=== PATIENT | male | born 1980 | race Caucasian/White ===

== ENCOUNTER 2019-01-11 00:54 | Emergency (ER) | payer BC, SELFPAY ==
[2019-01-11 00:55] VITALS: BP 158/106; PULSE 113; RESP 20; TEMP 36.5; O2SAT 97
[2019-01-11 00:58] VITALS: BP 158/106; PULSE 113; RESP 20; TEMP 36.5; O2SAT 97
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
--- NOTE | 2019-01-11 01:10 | [facility].EDGENADL ---
ED Disposition Clinical Impression: Scalp laceration Qualifiers: Encounter type: initial encounter Qualified Code(s): S01.01XA - Laceration without foreign body of scalp, initial encounter Disposition: Home, Self-Care Condition on Discharge: Good Instructions: DI for Closed Head Injury, DI for Laceration Repair -- [place] Additional Instructions: Additional instructions for SCALP LACERATION: Clean the wound daily with soap and water. You may shower and shampoo your hair. Avoid submerging the wound. No swimming.. Apply a thin film of antibiotic ointment such as neosporin, polysporin, or triple antibiotic daily after showering. Be careful when combing or brushing hair so that you so not snag the kera with a comb or brush. See your primary care physician or return to the [facility] in 7 days for suture removal. The [facility] is open 9 AM to 9 PM 7 days a week. Return if any signs of infection including increasing pain, pus drainage, swelling, redness, red streaks, or fever. Additional instructions for HEAD INJURY: See your physician as soon as possible for further evaluation. Return immediately if severe headache, vomiting, problems with vision or speech, numbness or weakness of the extremities, or severe neck pain. Referrals: Provider,Referral, [Referring] - - Critical Care Critical Care Time: No Attestation: On 01/11/19, the high probability of a clinically significant, sudden or life threatening deterioration of the following system(s) required my full and direct attention, intervention and personal management. The time I documented below is in addition to time spent performing reported procedures but includes the following listed in this critical care notation. Medical Decision Making - Jona Inquiry Pt receiving controlled substance: No Vital Signs: 01/11/19 00:55 01/11/19 00:58 Temperature 97.7 F 97.7 F Temperature Source Oral Oral Pulse Rate [Right Radial] 113 H 113 H Respiratory Rate 20 20 Blood Pressure [Right Arm] 158/106 H 158/106 H Blood Pressure Mean [Right Arm] 123 123 02 Sat by Pulse Oximetry 97 97 - Lab Data Lab Results 01/11/19 01:05: WBC 7.1, RBC 5.18, Hgb 15.5, Hct 46.6, MCV 90.0, MCH 29.8, MCHC 33.1, RDW 13.1, Plt Count 211, MPV 6.6 L, Neut % (Auto) 46.3, Lymph % (Auto) 45.4, Brooke % (Auto) 5.6, Eos % (Auto) 1.8, Baso % (Auto) 0.9, Neut # (Auto) 3.3, Lymph # (Auto) 3.2, Brooke # (Auto) 0.4, Eos # (Auto) 0.1, Baso # (Auto) 0.1 01/11/19 01:05: Sodium 140, Potassium 3.3 L, Chloride 102, Carbon Dioxide 24, Anion Gap 17.3 H, BUN 8, Creatinine 1.11, Estimated Creat Clear 153, Estimated GFR 75, Est GFR ( Amer) 91, Glucose 137 H, Calcium 8.8, Total Bilirubin 0.5, AST 27, ALT 47, Alkaline Phosphatase 90, Total Protein 7.9, Albumin 4.1, Globulin 3.8 H, Albumin/Globulin Ratio 1.1, Plasma/Serum Alcohol 269 H 01/11/19 01:40: Urine Color Yellow, Urine Appearance Clear, Urine pH 6.0, Ur Specific [place] <= 1.005, Urine Protein Negative, Urine Glucose (UA) Negative, Urine Ketones Negative, Urine Blood Negative, Urine Nitrate Negative, Urine Bilirubin Negative, Urine Urobilinogen 0.2, Ur Leukocyte Esterase Negative, Amorphous Sediment Trace 01/11/19 01:40: Urine Opiates Screen Negative, Urine Methadone Screen Negative, Ur Barbituates Screen Negative, Ur Phencyclidine Scrn Negative, Ur Amphetamines Screen Negative, U Benzodiazepines Scrn Negative, Urine Cocaine Screen Negative, U Marijuana (THC) Screen Negative Result diagrams: 01/11/19 01:05 01/11/19 01:05 Orders (Tests/Meds): ED MEDICATIONS Generic Name Dose Route Start Last Admin Trade Name Freq PRN Reason Stop Dose Admin Sodium Chloride 1,000 mls @ 999 mls/hr 01/11/19 01:15 01/11/19 01:12 Sod Chlor 0.9% 1000ml Bag IV 01/11/19 02:15 999 mls/hr .Q1H1M LON Administration Discontinued Medications Generic Name Dose Route Start Last Admin Trade Name Freq PRN Reason Stop Dose Admin Lidocaine/Ep
--- NOTE | 2019-01-11 01:13 | ED_ITS ---
ED Disposition Clinical Impression: Scalp laceration Qualifiers: Encounter type: initial encounter Qualified Code(s): S01.01XA - Laceration without foreign body of scalp, initial encounter Disposition: Home, Self-Care Condition on Discharge: Good Instructions: DI for Closed Head Injury, DI for Laceration Repair -- [place] Additional Instructions: Additional instructions for SCALP LACERATION: Clean the wound daily with soap and water. You may shower and shampoo your hair. Avoid submerging the wound. No swimming.. Apply a thin film of antibiotic ointment such as neosporin, polysporin, or triple antibiotic daily after showering. Be careful when combing or brushing hair so that you so not snag the kera with a comb or brush. See your primary care physician or return to the [facility] in 7 days for suture removal. The [facility] is open 9 AM to 9 PM 7 days a week. Return if any signs of infection including increasing pain, pus drainage, swelling, redness, red streaks, or fever. Additional instructions for HEAD INJURY: See your physician as soon as possible for further evaluation. Return immediately if severe headache, vomiting, problems with vision or speech, numbness or weakness of the extremities, or severe neck pain. Referrals: Provider,Referral, [Referring] - - Critical Care Critical Care Time: No Attestation: On 01/11/19, the high probability of a clinically significant, sudden or life threatening deterioration of the following system(s) required my full and direct attention, intervention and personal management. The time I documented below is in addition to time spent performing reported procedures but includes the following listed in this critical care notation. Medical Decision Making - Jona Inquiry Pt receiving controlled substance: No Vital Signs: 01/11/19 00:55 01/11/19 00:58 Temperature 97.7 F 97.7 F Temperature Source Oral Oral Pulse Rate [Right Radial] 113 H 113 H Respiratory Rate 20 20 Blood Pressure [Right Arm] 158/106 H 158/106 H Blood Pressure Mean [Right Arm] 123 123 02 Sat by Pulse Oximetry 97 97 - Lab Data Lab Results 01/11/19 01:05: WBC 7.1, RBC 5.18, Hgb 15.5, Hct 46.6, MCV 90.0, MCH 29.8, MCHC 33.1, RDW 13.1, Plt Count 211, MPV 6.6 L, Neut % (Auto) 46.3, Lymph % (Auto) 45.4, [place]gg % (Auto) 5.6, Eos % (Auto) 1.8, Baso % (Auto) 0.9, Neut # (Auto) 3.3, Lymph # (Auto) 3.2, [place] # (Auto) 0.4, Eos # (Auto) 0.1, Baso # (Auto) 0.1 01/11/19 01:05: Sodium 140, Potassium 3.3 L, Chloride 102, Carbon Dioxide 24, Anion Gap 17.3 H, BUN 8, Creatinine 1.11, Estimated Creat Clear 153, Estimated GFR 75, Est GFR ( Amer) 91, Glucose 137 H, Calcium 8.8, Total Bilirubin 0.5, AST 27, ALT 47, Alkaline Phosphatase 90, Total Protein 7.9, Albumin 4.1, Globulin 3.8 H, Albumin/Globulin Ratio 1.1, Plasma/Serum Alcohol 269 H 01/11/19 01:40: Urine Color Yellow, Urine Appearance Clear, Urine pH 6.0, Ur Specific [place] <= 1.005, Urine Protein Negative, Urine Glucose (UA) Negative, Urine Ketones Negative, Urine Blood Negative, Urine Nitrate Negative, Urine Bilirubin Negative, Urine Urobilinogen 0.2, Ur Leukocyte Esterase Negative, Amorphous Sediment Trace 01/11/19 01:40: Urine Opiates Screen Negative, Urine Methadone Screen Negative, Ur Barbituates Screen Negative, Ur Phencyclidine Scrn Negative, Ur Amphetamines Screen Negative, U Benzodiazepines Scrn Negative, Urine Cocaine Screen Negative, U Marijuana (THC) Screen Negative
[2019-01-11 01:20] LABS: Basophils # 0.1 K/mm3 (0-0.2); Basophils % 0.9 % (0.1-2.0); Eosinophils # 0.1 K/mm3 (0.0-0.4); Eosinophils % 1.8 % (0.1-12.0); Hematocrit 46.6 % (42.0-52.0); Hemoglobin 15.5 g/dL (14.1-18.0); Lymphocytes # 3.2 K/mm3 (0.7-4.5); Lymphocytes % 45.4 % (10-50); Mean Corpuscular HGB Conc 33.1 g/dL (31.8-35.4); Mean Corpuscular Hemoglobin 29.8 pg (27.0-31.2); Mean Platelet Volume 6.6 fl (7.4-10.4); Monocytes # 0.4 K/mm3 (0.1-1.0); Monocytes % 5.6 % (1.7-9.3); Neutrophils # 3.3 K/mm3 (1.8-7.8); Neutrophils % 46.3 % (37.0-80.0); Platelet Count 211 K/mm3 (142-424); Red Blood Count 5.18 M/mm3 (4.60-6.20); Red Cell Distribution Width 13.1 % (11.5-17.5); White Blood Count 7.1 K/mm3 (4.8-10.8)
[2019-01-11 01:37] LABS: Alanine Aminotransferase 47 U/L (12-78); Albumin Level 4.1 gm/dL (3.4-5.0); Albumin/Globulin Ratio 1.1 (1.1-1.8); Alkaline Phosphatase 90 U/L (46-116); Anion Gap 17.3 mEq/L (5-15); Aspartate Amino Transferase 27 U/L (15-37); Bilirubin,Total 0.5 mg/dL (0.2-1.0); Blood Urea Nitrogen 8 mg/dL (7-18); Calcium 8.8 mg/dL (8.5-10.1); Carbon Dioxide 24 mmol/L (21.0-32.0); Chloride 102 mmol/L (98-107); Creatinine Clearance Estimated 153 mL/min (50-200); Creatinine,Serum 1.11 mg/dL (0.70-1.30); Estimated Glomerular Filt Rate 75 ml/min (>60); Ethyl Alcohol 269 mg/dL (0-99); GFR (African American) 91 ML/MIN (>60); Globulin 3.8 gm/dl (1.3-3.2); Glucose 137 mg/dL (74-106); Potassium 3.3 mmoL/L (3.5-5.1); Sodium 140 mmol/L (136-145); Total Protein,Serum 7.9 gm/dL (6.4-8.2)
[2019-01-11 01:45] LABS: Microscopic, Urine URINE MICROSCOPIC (MICROSCOPIC)
[2019-01-11 01:48] LABS: Appearance,Urine CLEAR (Clear); Bilirubin,Urine Negative (Negative); Blood, Urine Negative (Negative); Color,Urine YELLOW (Yellow); Glucose,Urine (UA) Negative (Negative); Ketones,Urine Negative (Negative); Leukocyte Esterase,Urine Negative (Negative); Nitrate,Urine Negative (Negative); Protein,Urine Negative (Negative); Specific Gravity, Urine <= 1.005 (1.005-1.030); Urobilinogen,Urine 0.2 EU/dl (0.2)
[2019-01-11 01:52] LABS: Amorphous Sediment,Urine Trace /lpf
[2019-01-11 01:55] LABS: Amphetamine/Metha Screen,Urine Negative ng/mL (<1000); Barbiturates Screen,Urine Negative ng/mL (<200); Benzodiazepines Screen,Urine Negative ng/mL (<200); Cannabinoid Screen,Urine Negative ng/mL (<50); Cocaine Screen,Urine Negative ng/mL (<300); Methadone Screen,Urine Negative ng/mL (<300); Opiate Screen,Urine Negative ng/mL (<300); Phencyclidine Screen,Urine Negative ng/mL (<25)
[2019-01-11 02:14] VITALS: BP 149/79; PULSE 89; RESP 19; TEMP 36.6; O2SAT 99
== END 2019-01-11 02:20 | disposition home or self-care (01) ==
PROVIDERS: Emergency Provider Emergency Medicine; PCP Family Medicine
DX: S01.01XA Laceration without foreign body of scalp, initial encounter (principal); W55.22XA Struck by cow, initial encounter; Y92.73 Farm field as the place of occurrence of the external cause
CPT/HCPCS: 12002; 70450; 71045; 72125; 72170; 80053; 80305; 81001; 85025; 96365; 99283

== ENCOUNTER 2020-05-22 15:32 | Emergency (ER) | payer BC, SELFPAY ==
[2020-05-22] VITALS (7 sets, daily range): BP systolic 100–161; BP diastolic 58–105; PULSE 70–96; RESP 18–20; TEMP 36.8–37; O2SAT 93–100; BMI 34.2
--- NOTE | 2020-05-22 15:37 | PC.NURSE ---
at bedside upon arrival
--- NOTE | 2020-05-22 15:49 | [facility].EDHA ---
ED Disposition Clinical Impression: Sinusitis chronic, ethmoidal Headache Qualifiers: Headache type: tension-type Headache chronicity pattern: acute headache Disposition: Home, Self-Care Condition on Discharge: Good Additional Instructions: Return to the ED for any new or worsening symptoms including difficulty walking, persistent vomiting, or weakness. Recommend increasing your oral hydration and using saline spray for chronic sinusitis. Referrals: James Walters MD [Primary Care Provider] - - Critical Care Critical Care Time: No Attestation: On 05/22/20, the high probability of a clinically significant, sudden or life threatening deterioration of the following system(s) required my full and direct attention, intervention and personal management. The time I documented below is in addition to time spent performing reported procedures but includes the following listed in this critical care notation. Medical Decision Making - Medical Records Medical records reviewed: Yes: I reviewed the patient's medical records. - Jona Inquiry Pt receiving controlled substance: No Vital Signs: 05/22/20 15:33 05/22/20 16:03 05/22/20 16:30 Temperature 98.3 F Temperature Source Oral Pulse Rate [Left Radial] 96 H 88 88 Respiratory Rate 19 18 18 Blood Pressure [Right Arm] 161/105 H 144/92 H 126/76 Blood Pressure Mean [Right Arm] 123 109 92 Blood Pressure Source [Right Arm] Automatic Cuff Automatic Cuff Blood Pressure Position [Right Arm] Sitting Supine Sitting 02 Sat by Pulse Oximetry 100 97 93 L Oxygen Delivery Method Room Air Room Air 05/22/20 17:00 05/22/20 17:30 05/22/20 18:00 Temperature Temperature Source Pulse Rate [Left Radial] 82 78 70 Respiratory Rate 20 20 Blood Pressure [Right Arm] 122/67 113/58 L 100/67 L Blood Pressure Mean [Right Arm] 85 76 78 Blood Pressure Source [Right Arm] Automatic Cuff Automatic Cuff Automatic Cuff Blood Pressure Position [Right Arm] Sitting Sitting Sitting 02 Sat by Pulse Oximetry 97 93 L 94 L Oxygen Delivery Method Room Air Room Air Room Air Orders (Tests/Meds): ED MEDICATIONS Generic Name Dose Route Start Last Admin Trade Name Freq PRN Reason Stop Dose Admin Sodium Chloride 1,000 mls @ 999 mls/hr 05/22/20 16:00 05/22/20 15:56 Sod Chlor 0.9% 1000ml Bag IV 05/22/20 17:00 999 mls/hr .Q1H1M LON Administration Discontinued Medications Generic Name Dose Route Start Last Admin Trade Name Paul PRN Reason Stop Dose Admin Diphenhydramine HCl 50 mg 05/22/20 15:52 05/22/20 15:55 Diphenhydramine 50mg/Ml Vial IV 05/22/20 15:53 50 mg ONCE ONE Administration Ketorolac Tromethamine 15 mg 05/22/20 15:52 05/22/20 15:55 Ketorolac 30mg/Ml Vial IV 05/22/20 15:53 15 mg ONCE ONE Administration Prochlorperazine Edisylate 10 mg 05/22/20 15:52 05/22/20 15:55 Prochlorperazine 10mg/2ml Vial IV 05/22/20 15:53 10 mg ONCE ONE Administration ORDERS Category Date Time Status CT head/brain wo con Stat Cat Scan 05/22/20 15:52 Taken - CT Data Time Received: 17:[address] Reviewed: Yes: I have reviewed the patient's CT results, I have viewed the radiologist's interpretation Findings Narrative: ethmoid sinusitis with no other abnormalities - Reevaluation(s) Time: 17:50 (sleeping comfortably) Time: 18:24 (pt sleeping awakes and reports resolved headache. ) Medical Decision Narrative: 40-year-old male for headache for 1 week that is significantly worse today. Patient has no significant history of headaches in the past however is also a chronic alcoholic and appears acutely agitated and intoxicated at this time. Differential includes intracranial hemorrhage, migraine headache, tension headache, dehydration, and others. Due to the patient's daily use of alcohol and lack of significant headache history CT head noncontrast will be obtained for intracranial hemorrhage. Low suspicion for aneurysmal bleed at this time as the he
--- NOTE | 2020-05-22 15:52 | CT_ITS ---
PROCEDURE: CT HEAD/BRAIN WO CON CLINICAL INDICATION: headache Severe headache tear COMPARISON: No exams were available for comparison TECHNIQUE: Axial images obtained. All CT scans at the facility use one or more dose reduction, viz: automated exposure control, ma/kV adjustment per patient size (including targeted exams where dose is matched to indication, i.e. head), or iterative reconstruction technique. FINDINGS: No midline shift, mass effect, intracranial hemorrhage, hydrocephalus, or extra-axial fluid collection is evident. The calvarium has an unremarkable appearance. No mastoid effusion. Small retention cyst is present in the left maxillary sinus incompletely imaged IMPRESSION: No acute intracranial finding Dictated by: Guido Johnson MD 05/22/2020 19:47 Guido Johnson MD in [place] 05/22/2020 19:47
--- NOTE | 2020-05-22 16:45 | PC.NURSE ---
pt resting with no complaints
--- NOTE | 2020-05-22 17:15 | PC.NURSE ---
pt continues to sleep , no complaints MD at bedside with family . waiting on CT results
== END 2020-05-22 18:46 | disposition home or self-care (01) ==
PROVIDERS: Emergency Provider Student in an Organized Health Care Education/Training Program; PCP Family Medicine
DX: J32.9 Chronic sinusitis, unspecified (principal); F10.10 Alcohol abuse, uncomplicated; R03.0 Elevated blood-pressure reading, without diagnosis of hypertension
CPT/HCPCS: 70450; 96365; 96375; 99283

== ENCOUNTER → 2022-07-06 09:38 | Outpatient (CLI) | payer BC, SELFPAY ==
[2022-07-06 18:10] LABS: Adenovirus,PCR Not Detected (NotDetected); Bordetella Pertussis Not Detected (NotDetected); Chlamydophila Pneumoniae, PCR Not Detected (NotDetected); Coronavirus 19, PCR Not Detected (NotDetected); Coronavirus 229E Not Detected (NotDetected); Coronavirus NL63 Not Detected (NotDetected); Coronavirus OC43 Not Detected (NotDetected); Coronovirus HKU1,PCR Not Detected (NotDetected); Human Metapneumovirus Not Detected (NotDetected); Influenza A, PCR Not Detected (NotDetected); Influenza AH1, 2009 Not Detected (NotDetected); Influenza AH1, PCR Not Detected (NotDetected); Influenza AH3,PCR Not Detected (NotDetected); Influenza B, PCR Not Detected (NotDetected); Mycoplasma Pneumoniae, PCR Not Detected (NotDetected); Parainfluenza 1, PCR Not Detected (NotDetected); Parainfluenza 2, PCR Not Detected (NotDetected); Parainfluenza 3, PCR Not Detected (NotDetected); Parainfluenza 4, PCR Not Detected (NotDetected); Respiratory Syncytial Virus Not Detected (NotDetected); Rhinovirus/Enterovirus Not Detected (NotDetected)
== END ==
PROVIDERS: PCP Nurse Practitioner; Visit Provider Nurse Practitioner
DX: J35.9 Chronic disease of tonsils and adenoids, unspecified (principal); J06.9 Acute upper respiratory infection, unspecified
CPT/HCPCS: 87070; 87252; 87581; 87632; 87798; C9803; U0003; U0005

== ENCOUNTER 2024-07-26 01:09 | Emergency (ER) | payer BC, SELFPAY ==
[2024-07-26 01:10] VITALS: BP 158/88; PULSE 107; RESP 22; TEMP 37; O2SAT 97; BMI 35.3
--- NOTE | 2024-07-26 01:26 | ECG_ITS ---
APPROVED REPORT Exam: Resting ECG HR:101 bpm ECG Measurements Heart Rate 101 AXES HI 133 P 49 QRSd 104 QRS 2 QT 342 T 24 QTc 400 Conclusion SINUS TACHYCARDIA MODERATE VOLTAGE CRITERIA FOR LVH, CONSIDER NORMAL VARIANT [MEETS CRITERIA IN ONE OF: R(aVL), S(V1), R(V5), R(V5/V6)+S(V1)] MINIMAL ST DEPRESSION [0.025+ mV ST DEPRESSION] ABNORMAL RHYTHM ECG UNCONFIRMED REPORT Electronically signed by : ERIN VILLALBA, 07/27/2024 02:35:47
--- NOTE | 2024-07-26 01:30 | XR_ITS ---
PROCEDURE INFORMATION: Exam: XR Chest Exam date and time: 07/26/2024 1:37 AM Age: 44 years old Clinical indication: Pain; Chest pressure; Additional info: Cp TECHNIQUE: Imaging protocol: Radiologic exam of the chest. Views: 1 view. COMPARISON: CR (CHEST AP, CHEST, CHEST AP) 01/11/2019 1:30 AM FINDINGS: Lungs: Unremarkable. No consolidation. Pleural spaces: Unremarkable. No pleural effusion. No pneumothorax. Heart/Mediastinum: Unremarkable. No cardiomegaly. Bones/joints: Unremarkable. IMPRESSION: No acute findings.
--- NOTE | 2024-07-26 01:30 | ED_ITS ---
Discharge Plan Disposition Patient Disposition: Home, Self-Care Prescriptions Prescriptions: No Action meloxicam 15 mg tablet 15 mg PO DAILY Qty: 30 2RF azithromycin 250 mg tablet See Rx Instructions PO .COMPLEX Qty: 6 0RF Rx Instructions: For 250 mg dose pack: take 500 mg today (day 1), then 250 mg for 4 days (days 2-5) PO [id number]-[id number] [Bromfed DM] 2-30-10 mg/5 mL syrup 5 ml PO Q4-6H PRN (Reason: cold symptoms) Qty: 240 0RF prednisone 20 mg tablet 20 mg PO .COMPLEX Qty: 15 0RF Rx Instructions: 20 mg orally BID x 5 days then daily x 5 days Referrals Follow up/Referrals: Provider,Referral, MD [Primary Care Provider] - See instructions Activity Restrictions/Add. Instructions Additional Instructions/Restrictions: Please follow-up with your primary care provider and with cardiology for further assessment. Please return to the emergency department if you develop any new or worsening symptoms or become concerned for your health. Clinical Impressions Clinical Impression: Chest pain, Raynaud's disease, Arm numbness left Print Language Print Language: Albanian Discharge ED Provider: Marcellus Banerjee General Adult HPI General Chief complaint: Chest Pain Stated complaint: Chest pain Time Seen by Provider: 07/26/24 01:30 History of Present Illness HPI narrative: 44-year-old male with no reported past medical history presents for multiple complaints. He has been having chest pain for the last 3 to 4 months, intermittent, associated with left arm numbness. Current chest pain has been going on all day. Also complaining about his fingers turning white and becoming numb intermittently. Also complains of bilateral arm numbness intermittently over the last several months. Patient admits to drinking 6-8 beers prior to arrival. Patient is somewhat slurring his words. Patient reports that he may be anxious because one of his friends just suddenly from a heart attack. Related Data Previous Rx's ?Medication ?Instructions ?Recorded meloxicam 15 mg tablet 15 mg PO DAILY #30 tabs 04/17/23 azithromycin 250 mg tablet See Rx Instructions PO .COMPLEX #6 06/11/24 tabs ypaisuqncogpywr-snqxcmmdjcjxklx-EM 5 ml PO Q4-6H PRN cold symptoms 06/11/24 2 mg-30 mg-10 mg/5 mL oral syrup #240 mL (Bromfed DM) prednisone 20 mg tablet 20 mg PO .COMPLEX #15 tabs 06/11/24 Allergies Allergy/AdvReac Type Severity Reaction Status Date / Time No Known Allergies Allergy Verified 04/17/23 14:47 [facility] Disclaimer: The information contained in this section may have been updated after the patient was seen, as this information can be updated by other users. Medical History Right shoulder pain Acute maxillary sinusitis Essential hypertension Chewing tobacco use Social History Smoking Status: Current every day smoker tobacco type: cigars alcohol intake: current alcohol intake frequency: 3 or more drinks per day current occupational status: employed Travel in the last 8 weeks: None Other Medical History Have you received the Flu Vaccine for this season: No Have you received the Pneumonia Vaccine: No ROS Obtained: Yes All systems reviewed & no additional complaints except as documented Physical Exam General General appearance: alert and appears intoxicated Head Head exam: atraumatic and normocephalic Eye Eye exam: Present normal appearance, PERRL and EOMI ENT ENT exam: Present normal oropharynx and normal external ear exam Neck Neck exam: Present normal inspection and full ROM Chest Chest inspection: Present normal inspection and symmetric chest wall rise; Absent tenderness Respiratory Respiratory exam: Present normal lung sounds bilaterally; Absent respiratory distress Cardiovascular Cardiovascular exam: Present regular rate and normal rhythm Abdominal Exam Abdominal exam: Present soft; Absent distention, tenderness or guarding Extremities Exam Extremities exam: Present normal inspection; Absent edema or joint swelling Back Exam Back exam: Present normal inspection; Absent tenderness Neurological Exam Neurological exam: Present alert and oriented X3; Absent motor sensory deficit Psychiatric Psychiatric exam: Present normal affect and normal mood Skin Skin exam: Present warm, dry and normal color Lymphatic Lymphatic Findings: no adenopathy Medical Decision Making Medical Records Medical records reviewed: Yes I reviewed the patient's medical records. Screening: Per USPSTF and CDC recommendations, given the prevalence of disease in our region, it is our hospital?s policy to screen for HIV and viral Hepatitis for all patients aged 18 and over and those with ongoing risk factors. Jona Inquiry Pt receiving controlled substance: No Jona was queried for this patient: No Vital Signs: 07/26/24 01:10 07/26/24 02:49 Temperature 98.6 F Temperature Source Oral Pulse Rate 83 Pulse Rate [Right Brachial] 107 H Respiratory Rate 22 Blood Pressure 150/91 H Blood Pressure [Right Arm] 158/88 H Blood Pressure Mean [Right Arm] 111 Blood Pressure Source [Right Arm] Automatic Cuff Blood Pressure Position [Right Arm] Supine 02 Sat by Pulse Oximetry 97 98 Oxygen Delivery Method Room Air Lab Data Lab results reviewed: Yes I reviewed the patient's lab results. Lab Results 07/26/24 01:25: WBC 8.6, RBC 4.96, Hgb 14.9, Hct 44.0, MCV 88.7, MCH 30.0, MCHC 33.9, RDW 12.2, Plt Count 187, MPV 8.5, Neut % (Auto) 53.1, Lymph % (Auto) 36.2, Nicholas % (Auto) 7.0, Eos % (Auto) 2.7, Baso % (Auto) 0.7, Neut # (Auto) 4.6, Lymph # (Auto) 3.1, Nicholas # (Auto) 0.6, Eos # (Auto) 0.2, Baso # (Auto) 0.1, D-Dimer < 0.25, Sodium 139, Potassium 3.9, Chloride 101, Carbon Dioxide 28, Anion Gap 13.9, BUN 13, Creatinine 1.10, Estimated Creat Clear 172, Estimated GFR 73, Est GFR ( Amer) 89, Glucose 130 H, Calcium 9.3, Total Bilirubin 0.6, AST 45, ALT 54, Alkaline Phosphatase 106, Troponin I < 0.01, Total Protein 8.0, Albumin 4.8, Globulin 3.2, Albumin/Globulin Ratio 1.5, HIV Ag/Ab Combo Qual Negative 07/26/24 05:00: Troponin I < 0.01 07/26/24 01:25 07/26/24 01:25 Orders (Tests/Meds): ED MEDICATIONS Discontinued Medications Generic Name Dose Route Start Last Admin Trade Name Freq PRN Reason Stop Dose Admin Lactated Ringer's 1,000 mls @ 999 mls/hr 07/26/24 01:30 07/26/24 03:16 Lactated Ringer's 1000 Ml Bag IV 07/26/24 02:30 999 mls/hr .Q1H1M LON Administration ORDERS Category Date Time Status CXR --portable [XR chest portable] Stat Exams 07/26/24 01:30 Completed CBC w/Auto Diff [Complete Blood Count Auto Diff] Stat Lab 07/26/24 01:25 Completed CMP [Comprehensive Metabolic Panel] Stat Lab 07/26/24 01:25 Completed D-Dimer Stat Lab 07/26/24 01:25 Completed HIV (1&2) Antibody Rapid Stat Lab 07/26/24 01:36 Ordered HIV Combo Routine Lab 07/26/24 01:25 Completed Hep C Ab with Reflex to RNA Stat Lab 07/26/24 01:36 Received Troponin I Q3H Lab 07/26/24 01:25 Completed Troponin I Q3H Lab 07/26/24 05:00 Completed ECG Data Tracing #1: I reviewed this ECG and interpreted as documented below: Sinus tachycardia with rate of 101, no concerning ST or T wave changes. ECG initial impression date: 07/26/24 ECG initial impression time: 05:55 HEART Score History (anamnesis): Slightly suspicious ECG: Normal Age: <45 years Risk factors: 1-2 risk factors Troponin: </= normal limit HEART Score: 1 Medical Decision Narrative: 44-year-old male without significant past medical history presents for multiple complaints including acute on chronic chest pain. History was obtained via interactive discussion with patient, EMS. On arrival, patient is afebrile, hematin stable, satting properly on room air. Patient's speech is mildly slurred consistent with alcohol intoxication., Differential includes but is not limited to intoxication, anxiety, ACS, PE, musculoskeletal pain. Patient was given full dose aspirin prior to arrival by EMS for symptomatic management and correction of underlying abnormalities. Workup initiated including CBC CMP troponin D-dimer chest x-ray EKG. On re-evaluation, patient [remains afebrile, HD stable.] Laboratory workup independently interpreted by me and significant for negative initial troponin, negative D-dimer, no significant electrolyte derangement, normal renal function, no leukocytosis.. Imaging independently interpreted by me and significant for clear lungs bilaterally without focal opacity. See radiology read for full review of final results. EKG independently interpreted by me and significant for sinus tachycardia. Patient was placed in ED observation status for serial cardiac enzymes and cardiac monitoring. On reassessment patient debbi stable. Sinus rhythm on my interpretation of cardiac/vascular sonographer. Repeat troponin is undetectably low. Given this patient was seen appropriate for discharge with outpatient management. He was encouraged to follow-up with PCP and with cardiology for further assessment. Regarding patient's intermittent arm numbness over the last several months, he could have a radiculopathy in the neck and he was encouraged to follow-up for further assessment or return with worsening symptoms. Procedures Risk/Benefits of Procedure(s) Were Explained: Yes Critical Care Critical Care Time Critical Care Time: No
[2024-07-26 01:35] LABS: Basophils # 0.1 K/mm3 (0-0.2); Basophils % 0.7 % (0.1-2.0); Eosinophils # 0.2 K/mm3 (0.0-0.4); Eosinophils % 2.7 % (0.1-12.0); Hemoglobin 14.9 g/dL (14.1-18.0); Lymphocytes # 3.1 K/mm3 (0.7-4.5); Lymphocytes % 36.2 % (10-50); Mean Corpuscular HGB Conc 33.9 g/dL (31.8-35.4); Mean Corpuscular Volume 88.7 fl (80-94); Mean Platelet Volume 8.5 fl (7.4-10.4); Monocytes # 0.6 K/mm3 (0.1-1.0); Neutrophils # 4.6 K/mm3 (1.8-7.8); Neutrophils % 53.1 % (37.0-80.0); Platelet Count 187 K/mm3 (142-424); Red Blood Count 4.96 M/mm3 (4.60-6.20); Red Cell Distribution Width 12.2 % (11.5-17.5); White Blood Count 8.6 K/mm3 (4.8-10.8)
[2024-07-26 01:38] LABS: Albumin Level 4.8 g/dl (3.5-5.0); Chloride 101 mmol/L (98-107); Potassium 3.9 mmoL/L (3.5-5.1); Sodium 139 mmol/L (136-145)
[2024-07-26 01:41] LABS: Alanine Aminotransferase 54 U/L (12-78); Albumin/Globulin Ratio 1.5 (1.1-1.8); Alkaline Phosphatase 106 U/L (38-126); Anion Gap 13.9 mEq/L (5-15); Aspartate Amino Transferase 45 U/L (17-59); Bilirubin,Total 0.6 mg/dl (0.2-1.3); Blood Urea Nitrogen 13 mg/dl (9-20); Calcium 9.3 mg/dl (8.4-10.2); Carbon Dioxide 28 mmol/L (22.0-30.0); Creatinine Clearance Estimated 172 mL/min (50-200); Estimated Glomerular Filt Rate 73 ml/min (>60); GFR (African American) 89 ML/MIN (>60); Globulin 3.2 g/dL (1.3-3.2); Glucose 130 mg/dl (74-100)
[2024-07-26 01:47] LABS: D-Dimer < 0.25 ug/mL (0.0-0.5)
[2024-07-26 01:55] LABS: Troponin I < 0.01 ng/ml (0.00-0.034)
[2024-07-26 02:42] LABS: HIV Combo NEGATIVE (Negative)
[2024-07-26 02:49] VITALS: BP 150/91; PULSE 83; O2SAT 98
[2024-07-26] MEDS: LACTATED RINGERS 1000ML 1,000 ML 999 ML IV (03:16)
[2024-07-26 05:25] LABS: Troponin I < 0.01 ng/ml (0.00-0.034)
[2024-07-26 06:12] VITALS: BP 158/88; PULSE 80; RESP 18; TEMP 37.1; O2SAT 98
[2024-07-27 10:08] LABS: HCV Ab Non Reactive (Non Reactive)
== END 2024-07-26 06:16 | disposition home or self-care (01) ==
PROVIDERS: Emergency Provider Emergency Medicine
DX: I73.00 Raynaud's syndrome without gangrene (principal); R07.9 Chest pain, unspecified; R20.2 Paresthesia of skin; R47.81 Slurred speech
CPT/HCPCS: 71045; 80053; 84484; 85025; 85378; 86803; 87389; 93005; 96360; 99284; J7120